=== PATIENT | female | born 1990 | race Caucasian/White ===

== ENCOUNTER 2016-10-07 11:29 | Emergency (ER) | payer OTHER ==
[2016-10-07] MEDS ORDERED: KETOROLAC 60 MG/2 ML VIAL IM STA (12:45)
[2016-10-07] MEDS ORDERED: diazePAM INJ 5 MG/ML SYRINGE IM STA (12:45)
[2016-10-07] MEDS ORDERED: HYDROmorphone 1 MG/ML SYRINGE IM STA (12:45)
[2016-10-07] MEDS ORDERED: diazePAM INJ 5 MG/ML SYRINGE ONE (12:59)
[2016-10-07] MEDS ORDERED: KETOROLAC 60 MG/2 ML VIAL ONE (12:59)
[2016-10-07] MEDS ORDERED: HYDROmorphone 1 MG/ML SYRINGE ONE (12:59)
== END 2016-10-07 13:52 | disposition home or self-care (01) ==
DX: M54.42 Lumbago with sciatica, left side (principal); G89.29 Other chronic pain; R03.0 Elevated blood-pressure reading, without diagnosis of hypertension; F17.200 Nicotine dependence, unspecified, uncomplicated
CPT/HCPCS: 96372; 99283; 99284; J1170

== ENCOUNTER 2016-10-22 15:23 | Outpatient (CLI) | payer OTHER | END 2016-10-22 15:24 | disposition home or self-care (01) | DX: M54.5 Low back pain (principal) ==

== ENCOUNTER 2016-12-28 14:02 | Emergency (ER) | payer OTHER ==
[2016-12-28] MEDS ORDERED: KETOROLAC 60 MG/2 ML VIAL IM STA (14:35)
[2016-12-28] MEDS ORDERED: DEXAMETHASONE 10 MG/ML VIAL PO STA (14:36)
[2016-12-28] MEDS ORDERED: CHERRY SYRUP 10 ML UDC PO ONE (14:37)
[2016-12-28] MEDS ORDERED: DEXAMETHASONE 10 MG/ML VIAL ONE (14:37)
[2016-12-28] MEDS ORDERED: KETOROLAC 60 MG/2 ML VIAL ONE ×2 (14:37→14:38)
== END 2016-12-28 15:12 | disposition home or self-care (01) ==
DX: M54.5 Low back pain (principal); F17.200 Nicotine dependence, unspecified, uncomplicated
CPT/HCPCS: 96372; 99283; A9270

== ENCOUNTER 2017-01-07 08:31 | Emergency (ER) | payer OTHER ==
[2017-01-07] MEDS ORDERED: HYDROmorphone 1 MG/ML SYRINGE IVP STA (08:58)
[2017-01-07] MEDS ORDERED: DEXAMETHASONE 10 MG/ML VIAL IVP STA (08:59)
[2017-01-07] MEDS ORDERED: ONDANSETRON 4 MG/2 ML VIAL IVP STA (08:59)
[2017-01-07] MEDS ORDERED: HYDROmorphone 1 MG/ML SYRINGE ONE (09:01)
[2017-01-07] MEDS ORDERED: DEXAMETHASONE 10 MG/ML VIAL ONE (09:02)
[2017-01-07] MEDS ORDERED: ONDANSETRON 4 MG/2 ML VIAL ONE (09:02)
== END 2017-01-07 11:48 | disposition home or self-care (01) ==
DX: F17.200 Nicotine dependence, unspecified, uncomplicated (principal)
CPT/HCPCS: 72148; 96374; 96375; 99283; 99284; J1170

== ENCOUNTER 2017-04-19 17:47 | Emergency (ER) | payer OTHER ==
[2017-04-19 18:19] LABS: BILIRUBIN,URINE NEGATIVE (NEGATIVE)
[2017-04-19 18:20] LABS: HCG UR QUAL NEGATIVE; UA CHARGE (STRIP ONLY) YES; UR CULTURE IF IND NOT INDICATED
[2017-04-19] MEDS ORDERED: ONDANSETRON ODT 4 MG TABLET TL STA (20:22)
[2017-04-19] MEDS ORDERED: ONDANSETRON ODT 4 MG TABLET ONE (20:26)
--- NOTE | 2017-04-19 20:35 | ED Physician Documentation ---
PD HPI BACK PAIN - Stated complaint Stated Complaint: BACK PX - Chief complaint Chief Complaint: Back Pain - History obtained from History obtained from: Patient - History of Present Illness Timing - onset: How many days ago (2) Timing - details: Gradual onset, Still present Location: [place]: Pain Associated symptoms: No: Fever, Weakness, Numbness, Incontinent of urine, Unable to urinate Similar symptoms before: Work up / diagnostics, Treatment Recently seen: Not recently seen - Additional information Additional information: Patient is a 26 year old female with a history of recurrent urinary problems and bladder infections who is presenting to the emergency department for bilateral flank pain. Patient denies any trauma, fever or chills. Review of Systems Constitutional: denies: Fever, Chills Nose: denies: Rhinorrhea / runny nose, Congestion Throat: denies: Sore throat Cardiac: denies: Chest pain / pressure, Palpitations Respiratory: denies: Cough GI: reports: Nausea. denies: Abdominal Pain, Vomiting, Constipation, Diarrhea : reports: Dysuria, Frequency Skin: denies: Rash, Lesions Musculoskeletal: denies: Neck pain, Back pain, Extremity pain Neurologic: denies: Generalized weakness, Focal weakness Psychiatric: denies: Depressed Immunocompromised: denies: Immunocompromised PD PAST MEDICAL HISTORY - Past Medical History Past Medical History: No Cardiovascular: None Respiratory: None Neuro: None Endocrine/Autoimmune: None Musculoskeletal: Chronic back pain - Past Surgical History Past Surgical History: Yes - Present Medications Home Medications: Ambulatory Orders Medication Instructions Recorded Confirmed Acetaminophen [Tylenol] 650 mg PO PRN PRN 04/19/17 04/19/17 Ondansetron Odt [Zofran] 4 mg TL Q6H PRN #14 tablet 04/19/17 - Allergies Allergies/Adverse Reactions: Allergies Allergy/AdvReac Type Severity Reaction Status Date / Time Sulfa (Sulfonamide Allergy Rash Verified 04/19/17 19:37 Antibiotics) - Social History Does the pt smoke?: Yes Smoking Status: Current every day smoker Does the pt drink ETOH?: Yes Does the pt have substance abuse?: No - Immunizations Immunizations are current?: Yes - POLST Patient has POLST: No PD ED PE NORMAL - Vitals Vital signs reviewed: Yes - General General: Alert and oriented X 3, No acute distress - HEENT HEENT: Atraumatic, PERRL - Cardiac Cardiac: RRR - Respiratory Respiratory: No respiratory distress - Abdomen Abdomen: Soft - Derm Derm: Normal color, Warm and dry, No rash - Extremities Extremities: No deformity - Neuro Neuro: Alert and oriented X 3, No motor deficit, No sensory deficit - Psych Psych: Normal mood, Normal affect PD ED PE EXPANDED - HEENT HEENT: Dry mucous membranes - Back Back: CVA TTP right, CVA TTP left Results - Vitals Vitals: Vital Signs - 24 hr 04/19/17 04/19/17 17:53 20:40 Temperature 37.0 C Heart Rate 97 76 Respiratory 16 16 Rate Blood Pressure 115/70 115/74 O2 Saturation 99 100 Oxygen O2 Source Room air - Labs Labs: Laboratory Tests 04/19/17 04/19/17 18:00 18:00 Urine Color YELLOW Urine Clarity CLEAR Urine pH 6.0 Ur Specific [place] >=1.030 H >=1.030 H Urine Protein NEGATIVE Urine Glucose (UA) NEGATIVE Urine Ketones NEGATIVE Urine Occult Blood NEGATIVE Urine Nitrite NEGATIVE Urine Bilirubin NEGATIVE Urine Urobilinogen 0.2 (NORMAL) Ur Leukocyte Esterase NEGATIVE Ur Microscopic Review NOT INDICATED Urine Culture Comments NOT INDICATED Urine HCG, Qual NEGATIVE PD MEDICAL DECISION MAKING - ED course Complexity details: reviewed old records, reviewed results, re-evaluated patient , d/w patient ED course: Patient was seen and examined at bedside. urine was collectd and sent. patient was treated with zofran. paient's diagnostics were within normal limits. Patient required no further work up and was stable for discharge with outpatient follow up. Departure - Departure Disposition: 01 Home, Self Care Clinical Impression: Bilateral flank pain Condition: Good Instructions: ED Flank Pain Uncertain Cause Follow-Up: Navneet Murillo MD [Primary Care Provider] - Within 3 Days Prescriptions: Ondansetron Odt [Zofran] 4 mg TL Q6H PRN #14 tablet PRN Reason: Nausea / Vomiting Comments: Your diagnostics today were within normal limits, indicating that it is unlikely that there is any infection, or kidney stone. You should take the zofran as needed for nausea and stay well hydrated. You should follow up with your pmd if your symptoms don't improve. You can return to the emergency department at any time for new, worsening or uncontrollable symptoms. Discharge Date/Time: 04/19/17 21:05
[2017-04-19 20:41] VITALS: BP 115/74
== END 2017-04-19 21:05 | disposition home or self-care (01) ==
LOC: ED 17:47
DX: M54.5 Low back pain (principal); G89.29 Other chronic pain; R10.30 Lower abdominal pain, unspecified; F17.200 Nicotine dependence, unspecified, uncomplicated
CPT/HCPCS: 81003; 81025; 99283; Q0162; 81001; 87086

== ENCOUNTER 2017-07-07 15:46 | Outpatient (CLI) | payer OTHER ==
[2017-07-07 18:04] LABS: BASOPHILS # (AUTO) 0.1 10^3/uL (0.0-0.1); BASOPHILS % (AUTO) 0.6 %; EOSINOPHILS # (AUTO) 0.7 10^3/uL (0.0-0.7); EOSINOPHILS % (AUTO) 6.4 %; HCT - HEMATOCRIT 40.2 % (37.0-47.0); HGB - HEMOGLOBIN 13.5 g/dL (12.0-16.0); LYMPHOCYTES # (AUTO) 3.2 10^3/uL (1.5-3.5); LYMPHOCYTES % (AUTO) 31.8 %; MEAN CORPUSCULAR HEMOGLOBIN 30.3 pg (27.0-31.0); MEAN CORPUSCULAR HGB CONC 33.6 g/dL (32.0-36.0); MEAN CORPUSCULAR VOLUME 90.2 fL (81.0-99.0); MEAN PLATELET VOLUME 8.6 fL (7.9-10.8); MONOCYTES # (AUTO) 0.6 10^3/uL (0.0-1.0); MONOCYTES % (AUTO) 6.3 %; NEUTROPHILS # (AUTO) 5.6 10^3/uL (1.5-6.6); NEUTROPHILS % (AUTO) 54.9 %; RED BLOOD COUNT 4.45 10^6/uL (4.20-5.40); RED CELL DISTRIBUTION WIDTH 14.1 % (12.0-15.0); UNCORRECTED WHITE BLOOD COUNT 10.2 x10^3/uL; WHITE BLOOD COUNT 10.2 x10^3/uL (4.8-10.8)
[2017-07-07 18:44] LABS: ALBUMIN/GLOBULIN RATIO 1.6 (1.0-2.2); BILIRUBIN,TOTAL 0.3 mg/dL (0.2-1.0); CALCIUM 9.2 mg/dL (8.5-10.3); CREATININE 0.6 mg/dL (0.4-1.0); POTASSIUM 3.9 mmol/L (3.5-5.0); TOTAL PROTEIN 6.9 g/dL (6.7-8.2)
== END 2017-07-07 15:47 | disposition home or self-care (01) ==
LOC: LAB.F 15:46
PROVIDERS: ATTEND Physician Assistant Medical
DX: Z51.81 Encounter for therapeutic drug level monitoring (principal); Z79.899 Other long term (current) drug therapy
CPT/HCPCS: 36415; 80053; 85025